=== PATIENT | male | born 1995 | race Caucasian/White ===

== ENCOUNTER 2018-09-16 15:32 | Emergency (ER) | payer BC ==
--- NOTE | 2018-09-16 16:06 | ER Document Report ---
ED Medical Screen (RME) - General Chief Complaint: Foot Pain Stated Complaint: FOOT PAIN Time Seen by Provider: 09/16/18 16:03 Primary Care Provider: CHRISTY JEAN MD [Primary Care Provider] - Follow up as needed TRAVEL OUTSIDE OF THE [place] 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 Patient states he does have some soreness to his ankles into his calves. He was seen in urgent care this morning and they did x-rays which were unremarkable. Patient was sent here to evaluate for possible blood clotting. He is otherwise eating and drinking without difficulty. He is urinating normally and having normal bowel movements. No other concerns or complaints. He is not on any blood thinning medication. Denies CORLEY, fever, neck pain, URI, CP, SOB, LAMAR, Abd pain, dysuria, back pain, dysuria, or rash. I have treated and performed a rapid initial assessment of this patient. A comprehensive ED assessment and evaluation of the patient, analysis of test results and completion of medical decision making process will be conducted by additional ED providers. PHYSICAL EXAMINATION: GENERAL: Well-appearing, well-nourished and in no acute distress. A&Ox4. Answers questions appropriately. LUNGS: Breath sounds clear to auscultation bilaterally and equal. No wheezes rales or rhonchi. HEART: Regular rate and rhythm without murmurs, rubs, gallops. Extremities: 1+ pitting edema RLE. Trace LLE. + mild tenderness distal calves b/l. NEUROLOGICAL: Normal speech, normal gait. PSYCH: Normal mood, normal affect. - Related Data Allergies/Adverse Reactions: No Known Allergies Allergy (Verified 12/17/12 18:09) Past Medical History Psychiatric Medical History: Reports: Hx Anxiety, Hx Bipolar Disorder, Hx Depression - Immunizations Immunizations up to date: Yes Hx Diphtheria, Pertussis, Tetanus Vaccination: Yes Physical Exam - Vital signs Vitals: Temp Pulse Resp BP Pulse Ox 98.3 F 86 18 144/88 H 100 09/16/18 15:42 09/16/18 15:42 09/16/18 15:42 09/16/18 15:42 09/16/18 15:42 Course - Vital Signs Vital signs: Temp Pulse Resp BP Pulse Ox 98.3 F 86 18 144/88 H 100 09/16/18 15:42 09/16/18 15:42 09/16/18 15:42 09/16/18 15:42 09/16/18 15:42 Doctor's Discharge - Discharge Referrals: CHRISTY JEAN MD [Primary Care Provider] - Follow up as needed
[2018-09-16 16:38] LABS: ABSOLUTE BASOPHILS # (AUTO) 0.1 10^3/uL (0.0-0.2); ABSOLUTE LYMPHOCYTES (AUTO) 1.2 10^3/uL (0.5-4.7); ABSOLUTE MONOCYTES (AUTO) 0.7 10^3/uL (0.1-1.4); ABSOLUTE NEUT (AUTO) 4.8 10^3/uL (1.7-8.2); BASOPHILS % (AUTO) 1.2 % (0-2); EOSINOPHILS % (AUTO) 0.6 % (0-6); HEMATOCRIT 38.8 % (37.9-51.0); HEMOGLOBIN 13.1 g/dL (13.5-17.0); LYMPHOCYTES % (AUTO) 17.1 % (13-45); MEAN CORPUSCULAR HEMOGLOBIN 29.1 pg (27.0-33.4); MEAN CORPUSCULAR HGB CONC 33.7 g/dL (32.0-36.0); MEAN CORPUSCULAR VOLUME 86 fl (80-97); MONOCYTES % (AUTO) 10.2 % (3-13); PLATELET COUNT 109 10^3/uL (150-450); RED BLOOD COUNT 4.49 10^6/uL (4.35-5.55); RED CELL DISTRIBUTION WIDTH 18.5 % (11.5-14.0); SEGMENTED NEUTROPHILS % (AUTO) 70.9 % (42-78); TOTAL CELLS COUNTED % (AUTO) 100 %; WHITE BLOOD COUNT 6.8 10^3/uL (4.0-10.5)
[2018-09-16 16:48] LABS: INTERNATIONAL RATION (INR) 1.02; PROTHROMBIN TIME 13.9 SEC (11.4-15.4)
[2018-09-16 17:05] LABS: ALANINE AMINOTRANSFERASE 19 U/L (21-72); ALBUMIN 4.3 g/dL (3.5-5.0); ALKALINE PHOSPHATASE 111 U/L (38-126); ANION GAP 12 (5-19); ASPARTATE AMINO TRANSFERASE 15 U/L (17-59); BILIRUBIN,DIRECT 0.2 mg/dL (0.0-0.4); BILIRUBIN,TOTAL 0.8 mg/dL (0.2-1.3); BLOOD UREA NITROGEN 16 mg/dL (7-20); CALCIUM 9.3 mg/dL (8.4-10.2); CARBON DIOXIDE 29 mmol/L (22-30); CHLORIDE 103 mmol/L (98-107); GLUCOSE 77 mg/dL (75-110); POTASSIUM 3.8 mmol/L (3.6-5.0); TOTAL PROTEIN 7.3 g/dL (6.3-8.2)
--- NOTE | 2018-09-16 18:10 | ER Document Report ---
ED General - General Chief Complaint: Foot Pain Stated Complaint: FOOT PAIN Time Seen by Provider: 09/16/18 16:03 Primary Care Provider: CHRISTY JEAN MD [NO LOCAL MD] - Follow up in 3-5 days Notes: Patient is a 23-year-old male with history of CML, undergoing oral chemotherapy with Gleevec that presents to the emergency department for chief complaint of bilateral ankle and foot pain. Patient states has been having ankle and foot swelling recently, is been worse over the past few weeks, it went from 1 side be ing worse on the right, then going to the left and nails both feet. It does hurt mainly on the arch bilaterally, it feels better to walk on the sides of his feet. He was told it may be a side effect of the imatinib that he is on, versus gout but he is not sure. He denies noting any redness to his feet, denies any fevers, chills, night sweats, chest pain, shortness of breath or difficulty breathing. He currently rates his pain at rest as a 2 out of 10 describes it is tolerable. He denies noting any swelling in his arms. No recent prolonged travel, and no history of DVT or PE. Past Medical History: CML Past Surgical History: Bone marrow biopsy Social History: Denies tobacco, alcohol or drug use Family History: Reviewed and noncontributory for presenting illness Allergies: Reviewed, see documented allergy list. REVIEW OF SYSTEMS: Other than noted above, the 12 point review of systems was reviewed with the patient and were negative, all pertinent findings are included in the HPI. PHYSICAL EXAMINATION: Vital signs reviewed, nursing noted reviewed. GENERAL: Well-appearing, well-nourished and in no acute distress. HEAD: Atraumatic, normocephalic. EYES: Eyes appear normal, extraocular movements intact, sclera anicteric, conjunctiva are normal. ENT: nares patent, oropharynx clear without exudates. Moist mucous membranes. NECK: Normal range of motion, supple without lymphadenopathy LUNGS: Breath sounds clear to auscultation bilaterally and equal. No wheezes rales or rhonchi. HEART: Regular rate and rhythm without murmurs ABDOMEN: Soft, nontender, normoactive bowel sounds. No rebound, guarding, or rigidity. No masses appreciated. EXTREMITIES: good range of motion, bilateral generalized edema to the ankles, mild in nature, there is tenderness to palpation along the arches of both feet, without erythema, there is no noted joint swelling or effusions. Otherwise good range of motion of all extremities. NEUROLOGICAL: No focal neurological deficits. Moves all extremities spontaneously Motor and sensory grossly intact on exam. PSYCH: Normal mood, normal affect. SKIN: Warm, Dry, normal turgor, no rashes or lesions noted on exposed skin TRAVEL OUTSIDE OF THE [place] IN LAST 30 DAYS: No - Related Data Allergies/Adverse Reactions: No Known Allergies Allergy (Verified 12/17/12 18:09) Past Medical History - Social History Smoking Status: Never Smoker Chew tobacco use (# tins/day): No Frequency of alcohol use: None Drug Abuse: None Family History: Reviewed & Not Pertinent Patient has suicidal ideation: No Patient has homicidal ideation: No Renal/ Medical History: Denies: Hx Peritoneal Dialysis Psychiatric Medical History: Reports: Hx Anxiety, Hx Bipolar Disorder, Hx Depression - Immunizations Immunizations up to date: Yes Hx Diphtheria, Pertussis, Tetanus Vaccination: Yes Physical Exam - Vital signs Vitals: Temp Pulse Resp BP Pulse Ox 98.3 F 86 18 144/88 H 100 09/16/18 15:42 09/16/18 15:42 09/16/18 15:42 09/16/18 15:42 09/16/18 15:42 Course - Re-evaluation Re-evalutation: Patient seen and examined vital signs reviewed. Laboratory data and/or imaging were ordered as appropriate for the patient's presenting symptoms and complaint, with consideration of any critical or life th reatening conditions that may be associated with their obtained history and exam as noted above. Results were reviewed when available and demonstrated negative duplex imaging of the lower extremities bilaterally, no signs of DVT, and work was essentially unremarkable, white count within normal limits, normal platelet count. Renal and hepatic function are unremarkable. The patient was re-evaluated and was stable Evaluation was most consistent with peripheral edema, with bilateral foot pain, most likely secondary to side effect of the Gleevec, as peripheral edema is a #1 side effect. I discussed with them taking only very sparingly [id number] naproxen, if needed for pain, but more importantly advised him to wear compression stockings that can help with the swelling which will ultimately help with his pain. I also advised wearing orthotics to help with arch support. Results were discussed with the patient at this point, after careful consideration I feel that that patient can be discharged from the emergency department, the patient was educated treatments and reasons to return to the emergency department based on their presumed diagnosis as noted above, they were advised to followup with a primary care physician in 2-3 days. Patient was agreeable to plan of care. *Note is created using voice recognition software and may contain spelling, syntax or grammatical errors. Laboratory 09/16/18 09/16/18 09/16/18 16:25 16:25 16:25 WBC 6.8 RBC 4.49 Hgb 13.1 L Hct 38.8 MCV 86 MCH 29.1 MCHC 33.7 RDW 18.5 H Plt Count 109 L Seg Neutrophils % 70.9 Lymphocytes % 17.1 Monocytes % 10.2 Eosinophils % 0.6 Basophils % 1.2 Absolute Neutrophils 4.8 Absolute Lymphocytes 1.2 Absolute Monocytes 0.7 Absolute Eosinophils 0.0 Absolute Basophils 0.1 PT 13.9 INR 1.02 APTT 36.0 H Sodium 144.0 Potassium 3.8 Chloride 103 Carbon Dioxide 29 Anion Gap 12 BUN 16 Creatinine 1.14 Est GFR ( Amer) > 60 Est GFR (Non-Af Amer) > 60 Glucose 77 Calcium 9.3 Total Bilirubin 0.8 Direct Bilirubin 0.2 Neonat Total Bilirubin Not Reportable Neonat Direct Bilirubin Not Reportable Neonat Indirect Bili Not Reportable AST 15 L ALT 19 L Alkaline Phosphatase 111 Total Protein 7.3 Albumin 4.3 Venous Doppler Study 09/16/18 16:04 IMPRESSION: NO EVIDENCE DVT OR SVT IN EITHER LEG. - Vital Signs Vital signs: Temp Pulse Resp BP Pulse Ox 98.1 F 91 18 149/91 H 97 09/16/18 18:21 09/16/18 18:21 09/16/18 18:21 09/16/18 18:21 09/16/18 18:21 - Laboratory Result Diagrams: 09/16/18 16:25 09/16/18 16:25 Laboratory results interpreted by me: 09/16/18 09/16/18 09/16/18 16:25 16:25 16:25 Hgb 13.1 L RDW 18.5 H Plt Count 109 L APTT 36.0 H AST 15 L ALT 19 L Discharge - Discharge Clinical Impression: Peripheral edema, Foot pain, bilateral Condition: Stable Disposition: HOME, SELF-CARE Instructions: Edema, Peripheral ([facility]) Additional Instructions: Please purchase some compression stockings, to help with the swelling in her feet, please discuss with your oncologist regarding medication side effects, your ultrasound of your legs was negative for any blood clots. I would also advised using arch support for both your feet to help with the pain you are having in the middle of your feet. Referrals: CHRISTY JEAN MD [NO LOCAL MD] - Follow up in 3-5 days
[2018-09-16 18:25] VITALS: BP 149/91
--- NOTE | 2018-09-16 19:00 | RADIOLOGY REPORT (SQ) ---
EXAM DESCRIPTION: VENOUS BILATERAL LOWER COMPLETED DATE/TIME: 09/16/2018 6:51 pm REASON FOR STUDY: LE edema R>L, leg pains COMPARISON: None. TECHNIQUE: Dynamic and static montague scale and color images acquired of both lower extremity venous sy stems. Selected spectral images acquired with additional compression and augmentation maneuvers. Imag es stored on PACS. LIMITATIONS: None. FINDINGS: RIGHT LEG COMMON FEMORAL AND FEMORAL: Normal phasicity, compression and augmentation. No visualized echogenic m aterial on montague scale. No defects on color images. POPLITEAL: Normal compression and augmentation. No visualized echogenic material on montague scale. No de fects on color images. CALF VESSELS: Normal compression and augmentation. No visualized echogenic material on montague scale. No defects on color image. GSV AND SSV: Normal compression. No visualized echogenic material on montague scale. No defects on color images. ANY DEEP VENOUS INSUFFICIENCY: Not evaluated. ANY EVIDENCE OF POPLITEAL CYST: No. OTHER: No other significant finding. LEFT LEG COMMON FEMORAL AND FEMORAL: Normal phasicity, compression and augmentation. No visualized echogenic m aterial on montague scale. No defects on color images. POPLITEAL: Normal compression and augmentation. No visualized echogenic material on montague scale. No de fects on color images. CALF VESSELS: Normal compression and augmentation. No visualized echogenic material on montague scale. No defects on color images. GSV AND SSV: Normal compression. No visualized echogenic material on montague scale. No defects on color images. ANY DEEP VENOUS INSUFFICIENCY: Not evaluated. ANY EVIDENCE POPLITEAL CYST: No. OTHER: No other significant finding. IMPRESSION: NO EVIDENCE DVT OR SVT IN EITHER LEG. TECHNICAL DOCUMENTATION: JOB ID: [id number] [employer]- All Rights Reserved Reading location - IP/workstation name: [email or web address]
== END 2018-09-16 18:37 | disposition home or self-care (01) ==
LOC: ER 15:32
DX: R60.9 Edema, unspecified (principal); M79.672 Pain in left foot; M79.671 Pain in right foot; C92.10 Chronic myeloid leukemia, BCR/ABL-positive, not having achieved remission; Z79.899 Other long term (current) drug therapy
CPT/HCPCS: 36415; 80053; 85025; 85610; 85730; 93970; 99284